=== PATIENT | female | born 1990 | race Caucasian/White ===

== ENCOUNTER 2018-12-03 21:20 | Emergency (ER) | payer OTHER ==
--- OUTSIDE RECORDS SUMMARY | 2018-12-03 21:23 | XMS REPORT ---
:1990 Author Organization eClinicalWorks Care Team Providers Name Role Phone Garland Herbert Provider Role Unavailable Allergies, Adverse Reactions, Alerts Substance Reaction Event Type N.K.D.A. Info Not Available Non Drug Allergy Problems Problem Type Condition Code Onset Dates Condition Status Assessment Pain, joint, shoulder, left M25.512 Active Assessment Strain of left shoulder, initial S46.912A Active encounter Assessment Cervical radiculopathy M54.12 Active Medications Medication Code System Code Instructions Start End Date Status Dosage Date [facility] [id number] 7.5 MG Orally Nov 13, Dec 13, Active 1 tablet Once a day 2018 [facility] [id number] 10 MG Orally Once Nov 13, Active 1 capsule a day 2018 Results No Known Results Summary Purpose eClinicalWorks Submission
[2018-12-03 22:54] LABS: Urine Blood NEGATIVE (NEG); Urine Glucose NEGATIVE (NEG); Urine Protein TRACE (NEG); Urine Specific Gravity 1.015 (1.005-1.030)
[2018-12-03] MEDS ORDERED: KETOROLAC 30 MG/ML INJ ONE (23:39)
[2018-12-03] MEDS ORDERED: NA CHLORIDE 0.9% 1,000 ML ONE (23:51)
--- NOTE | 2018-12-04 00:39 | ER ---
Nurse's Notes [facility] Name: Ana Dorsey Age: 28 yrs Sex: Female : 1990 Arrival Date: 12/03/2018 Time: 21:24 Bed 4 Private MD: Tres Hu B Diagnosis: Headache Presentation: 12/03 21:31 Presenting complaint: Patient states: "I started running a fever last night, this aj1 morning I went to the doctor he thinks I have the flu and he gave me Tamiflu and Zofran and Fiorcet and none of that is helping I'm having bad pain in my head and my stomach and a tight pain in my neck and shoulders and upper back and I just feel bad all over" Reports cough, and sinus congestion. Denies SOB. Transition of care: patient was not received from another setting of care. Onset of symptoms was December 03, 2018. Risk Assessment: Do you want to hurt yourself or someone else? Patient reports no desire to harm self or others. Initial Sepsis Screen: Does the patient meet any 2 criteria? HR > 90 bpm. No. Patient's initial sepsis screen is negative. Does the patient have a suspected source of infection? Yes: Productive cough/pneumonia. Care prior to arrival: None. 21:31 Method Of Arrival: Ambulatory aj1 21:31 Acuity: AISSATOU 4 aj1 Triage Assessment: 21:34 General: Appears in no apparent distress. uncomfortable, ill, Behavior is calm, aj1 cooperative, appropriate for age. Pain: Complains of pain in face, back, chest and abdomen Pain currently is 9 out of 10 on a pain scale. Neuro: Level of Consciousness is awake, alert, obeys commands. Cardiovascular: Patient's skin is warm and dry. Respiratory: Airway is patent Respiratory effort is even, unlabored, Respiratory pattern is regular, symmetrical. GI: Reports lower abdominal pain, nausea. 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 - Social history:: Smoking status: Patient/guardian denies using tobacco. - Ebola Screening: : Patient denies travel to an Ebola-affected area in the 21 days before illness onset. Screenin:20 Abuse screen: Denies threats or abuse. Denies injuries from another. Nutritional ak1 screening: No deficits noted. Tuberculosis screening: No symptoms or risk factors identified. Fall Risk None identified. Assessment: 22:19 Reassessment: Patient appears in no apparent distress at this time. No changes from ak1 previously documented assessment. Patient and/or family updated on plan of care and expected duration. Pain level reassessed. General: Appears in no apparent distress. Pain: Complains of pain in body aches. Neuro: No deficits noted. Cardiovascular: No deficits noted. Respiratory: No deficits noted. GI: Bowel sounds present X 4 quads. Abd is soft and non tender X 4 quads. : No signs and/or symptoms were reported regarding the genitourinary system. EENT: Reports nasal congestion nasal discharge. Derm: Reports fever started today. Musculoskeletal: No signs and/or symptoms reported regarding the musculoskeletal system. 23:32 Reassessment: Patient appears in no apparent distress at this time. No changes from ak1 previously documented assessment. Patient and/or family updated on plan of care and expected duration. Pain level reassessed. Patient is alert, oriented x 3, equal unlabored respirations, skin warm/dry/pink. 12/04 00:30 Reassessment: pt informed of discharge, pt and family at bedside asked for morphine for ak1 pain. ERP notified. ERP and Charge nurse sent to reassess. patient report given to Melissa for pt care. Vital Signs: 12/03 21:34 BP 126 / 86; Pulse 100; Resp 20; Temp 99.8; Pulse Ox 100% on R/A; Weight 106.59 kg (R); aj1 Height 5 ft. 8 in. (172.72 cm) (R); Pain 9/10; 22:44 BP 116 / 74; Pulse 96; Resp 18; Pulse Ox 99% on R/A; ak1 12/04 00:39 BP 98 / 61; Pulse 99; Resp 18; Pulse Ox 98% on R/A; ak1 01:54 BP 118 / 63; Pulse 94; Resp 17; Temp 99.6; Pulse Ox 98% on R/A; tl1 12/03 21:34 Body Mass Index 35.73 (106.59 kg, 172.72 cm) aj1 ED Course: 12/03 21:24 Patient arrived in ED. es 21:26 Tres Hu MD is Private Physician. es 21:33 Triage completed. aj1 21:34 Arm band placed on Patient placed in waiting room, Patient notified of wait time. aj1 22:15 Jie Dhillon, RN is Primary Nurse. ak1 22:20 Patient has correct armband on for positive identification. Bed in low position. Call ak1 light in reach. Side rails up X 1. Pulse ox on. NIBP on. 22:38 Delonte Redmond MD is Attending Physician. tw4 23:47 Inserted saline lock: 20 gauge in right antecubital area, using aseptic technique. ak1 12/04 00:38 Tres Hu MD is Referral Physician. tw4 00:39 No provider procedures requiring assistance completed. ak1 01:[address] via stretcher. kw1 01:18 CT completed. Patient tolerated procedure well. Patient moved back from CT. kw1 01:35 CT Head Brain wo Cont In Process Unspecified. EDMS 02:10 Tres Hu MD is Referral Physician. tw4 02:31 IV discontinued, intact, bleeding controlled, No redness/swelling at site. Pressure tl1 dressing applied. Administered Medications: 12/03 23:31 Drug: TORadol 60 mg Route: IM; Site: right gluteus; ak1 23:31 Follow up: Response: No adverse reaction ak1 23:46 Drug: NS 0.9% 1000 ml Route: IV; Rate: 1 bolus; Site: left antecubital; ak1 12/04 01:15 Follow up: IV Status: Completed infusion; IV Intake: 1000ml bb 00:34 Drug: traMADol 50 mg Route: PO; ak1 02:33 Follow up: Response: No adverse reaction; Marked relief of symptoms; Pain is decreased tl1 01:35 Drug: NS 0.9% 1000 ml Route: IV; Rate: 1 bolus; Site: left antecubital; tl1 02:32 Follow up: IV Status: Completed infusion tl1 01:35 Drug: morphine 4 mg Route: IVP; Infused Over: 2 mins; Site: left antecubital; tl1 02:32 Follow up: Response: No adverse reaction; Marked relief of symptoms; Pain is decreased tl1 01:36 Drug: Zofran 4 mg Route: IVP; Infused Over: 2 mins; Site: left antecubital; tl1 02:31 Follow up: Response: No adverse reaction; Marked relief of symptoms; Nausea is decreasedtl1 01:37 CANCELLED (Duplicate Order): NS 0.9% 1000 ml IV at 1 bolus Per protocol; 1000 mL bolus tl1 01:51 Drug: Tylenol 650 mg Route: PO; tl1 02:31 Follow up: Response: No adverse reaction; Marked relief of symptoms; Temperature is tl1 decreased Intake: 01:15 IV: 1000ml; Total: 1000ml. bb Outcome: 00:38 Discharge ordered by . tw4 02:30 AMA AMA form signed tl1 02:30 Condition: good 02:30 Instructed on medication usage. 02:34 Patient left the ED. tl1 Signatures: Dispatcher [employer] Ijeoma Sanders RN RN Apoorva Valverde Brenda, RN RN Melissa Colby RN RN tl1 Jie Dhillon RN RN ak1 Alley Price kw1 Delonte Redmond MD MD tw4
--- NOTE | 2018-12-04 00:39 | EDPHYS ---
Physician Documentation [facility] Name: Ana Dorsey Age: 28 yrs Sex: Female : 1990 Arrival Date: 12/03/2018 Time: 21:24 Bed 4 Private MD: Tres Hu B ED Physician Delonte Redmond HPI: 12/03 23:55 This 28 yrs old Female presents to ER via Ambulatory with complaints of tw4 Fever, Abdominal Pain, Headache. 23:55 The patient reports fever, not measured (subjective). Onset: The symptoms/episode tw4 began/occurred yesterday. Modifying factors: Recent medications: Other fioricet. Associated signs and symptoms: Pertinent positives: cough, headache. Severity of symptoms: At their worst the symptoms were moderate in the emergency department the symptoms are unchanged. The patient has been recently seen by a physician: the patient's primary care provider. 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 - Social history:: Smoking status: Patient/guardian denies using tobacco. - Ebola Screening: : Patient denies travel to an Ebola-affected area in the 21 days before illness onset. ROS: 23:55 Neuro: Positive for headache, Negative for altered mental status, dizziness, gait tw4 disturbance, seizure activity, speech changes, syncope, near syncope, tingling, tinnitus, tremor, visual changes. 23:55 Eyes: Negative for injury, pain, redness, and discharge, ENT: Negative for injury, tw4 pain, and discharge, Cardiovascular: Negative for chest pain, palpitations, and edema, Respiratory: Negative for shortness of breath, cough, wheezing, and pleuritic chest pain, Abdomen/GI: Negative for abdominal pain, nausea, vomiting, diarrhea, and constipation, MS/Extremity: Negative for injury and deformity, Skin: Negative for injury, rash, and discoloration. 23:55 Constitutional: Positive for fever, malaise. Exam: 23:55 Constitutional: This is a well developed, well nourished patient who is awake, alert, tw4 and in no acute distress. Head/Face: Normocephalic, atraumatic. Chest/axilla: Normal chest wall appearance and motion. Nontender with no deformity. No lesions are appreciated. Cardiovascular: Regular rate and rhythm with a normal S1 and S2. No gallops, murmurs, or rubs. Normal PMI, no JVD. No pulse deficits. Respiratory: Lungs have equal breath sounds bilaterally, clear to auscultation and percussion. No rales, rhonchi or wheezes noted. No increased work of breathing, no retractions or nasal flaring. Abdomen/GI: Soft, non-tender, with normal bowel sounds. No distension or tympany. No guarding or rebound. No evidence of tenderness throughout. Back: No spinal tenderness. No costovertebral tenderness. Full range of motion. Skin: Warm, dry with normal turgor. Normal color with no rashes, no lesions, and no evidence of cellulitis. MS/ Extremity: Pulses equal, no cyanosis. Neurovascular intact. Full, normal range of motion. Neuro: Awake and alert, GCS 15, oriented to person, place, time, and situation. Cranial nerves II-XII grossly intact. Motor strength 5/5 in all extremities. Sensory grossly intact. Cerebellar exam normal. Normal gait. Vital Signs: 21:34 BP 126 / 86; Pulse 100; Resp 20; Temp 99.8; Pulse Ox 100% on R/A; Weight 106.59 kg (R); aj1 Height 5 ft. 8 in. (172.72 cm) (R); Pain 9/10; 22:44 BP 116 / 74; Pulse 96; Resp 18; Pulse Ox 99% on R/A; ak1 12/04 00:39 BP 98 / 61; Pulse 99; Resp 18; Pulse Ox 98% on R/A; ak1 01:54 BP 118 / 63; Pulse 94; Resp 17; Temp 99.6; Pulse Ox 98% on R/A; tl1 12/03 21:34 Body Mass Index 35.73 (106.59 kg, 172.72 cm) aj MDM: 12/03 22:38 Patient medically screened. tw4 12/04 06:55 Differential diagnosis: viral Infection, bacterial infection, URI. Data reviewed: vital tw4 signs, nurses notes. Data interpreted: Pulse oximetry: Interpretation: normal. Counseling: I had a detailed discussion with the patient and/or guardian regarding: lab results, radiology results. Medication response: morphine relieved the patient's pain. Symptoms have resolved, Toradol did not change the patient's pain. Special discussion: I discussed with the patient/guardian in detail that at this point there is no indication for admission to the hospital. It is understood, however, that if the symptoms persist or worsen the patient needs to return immediately for re-evaluation. ED course: Pt states her pain did not improve at Toradol or Tramadol. Instructed pt that there was a possibility of viral meningitis since pt tested positive for the flu. P agreed and signed consent. After patient received morphine for her headache pt refused LP. AMA form signed pt understands risks of refusing. Told to return if symptoms worsen. 12/03 22:29 Order name: Influenza Screen (A EDMS 12/03 22:33 Order name: Urine Dipstick--Ancillary (enter results) ag4 12/03 22:33 Order name: Urine --Ancillary (enter results) ag4 12/04 00:56 Order name: CBC with Diff tw4 12/04 00:56 Order name: CMP tw4 12/04 00:55 Order name: CT Head Brain wo Cont tw4 12/04 00:56 Order name: PT-INR tw4 12/04 02:06 Order name: CBC Smear Scan EDMS Administered Medications: 12/03 23:31 Drug: TORadol 60 mg Route: IM; Site: right gluteus; ak1 23:31 Follow up: Response: No adverse reaction ak1 23:46 Drug: NS 0.9% 1000 ml Route: IV; Rate: 1 bolus; Site: left antecubital; ak1 12/04 01:15 Follow up: IV Status: Completed infusion; IV Intake: 1000ml bb 00:34 Drug: traMADol 50 mg Route: PO; ak1 02:33 Follow up: Response: No adverse reaction; Marked relief of symptoms; Pain is decreased tl1 01:35 Drug: NS 0.9% 1000 ml Route: IV; Rate: 1 bolus; Site: left antecubital; tl1 02:32 Follow up: IV Status: Completed infusion tl1 01:35 Drug: morphine 4 mg Route: IVP; Infused Over: 2 mins; Site: left antecubital; tl1 02:32 Follow up: Response: No adverse reaction; Marked relief of symptoms; Pain is decreased tl1 01:36 Drug: Zofran 4 mg Route: IVP; Infused Over: 2 mins; Site: left antecubital; tl1 02:31 Follow up: Response: No adverse reaction; Marked relief of symptoms; Nausea is decreasedtl1 01:37 CANCELLED (Duplicate Order): NS 0.9% 1000 ml IV at 1 bolus Per protocol; 1000 mL bolus tl1 01:51 Drug: Tylenol 650 mg Route: PO; tl1 02:31 Follow up: Response: No adverse reaction; Marked relief of symptoms; Temperature is tl1 decreased Disposition: 12/04/18 02:11 Patient has left against medical advice. Impression: Headache. - Patients states they are going to Home. - Condition is Stable. Follow up: Tres Hu MD; When: Upon discharge from the Emergency Department; Reason: If symptoms return, Recheck today's complaints, Continuance of care. - Problem is new. - Symptoms are unchanged. Signatures: Dispatcher [employer] EDMS Ijeoma Ford RN RN aj1 Melissa Cano RN RN tl1 Jie Dhillon RN RN ak1 Delonte Redmond MD MD tw4 Shirley Esparza RN bb Corrections: (The following items were deleted from the chart) 12/03 23:59 23:55 Constitutional: Negative for fever, chills, and weight loss, Eyes: Negative for tw4 injury, pain, redness, and discharge, Cardiovascular: Negative for chest pain, palpitations, and edema, Respiratory: Negative for shortness of breath, cough, wheezing, and pleuritic chest pain, Abdomen/GI: Negative for abdominal pain, nausea, vomiting, diarrhea, and constipation, Back: Negative for injury and pain, MS/Extremity: Negative for injury and deformity, Skin: Negative for injury, rash, and discoloration, tw4 12/04 01:37 00:55 NS 0.9% 1000 ml IV at 1 bolus Per protocol; 1000 mL bolus ordered. tw4 tl1 01:53 00:38 12/04/2018 00:38 Discharged to Home. Impression: Influenza due to other tl1 identified influenza virus. Condition is Stable. Forms are Work release form, Medication Reconciliation Form, Thank You Letter, Antibiotic Education, Prescription Opioid Use. Follow up: Tres Hu; When: Upon discharge from the Emergency Department; Reason: If symptoms return, Recheck today's complaints, Continuance of care. Problem is new. Symptoms have improved. tw4 02:33 00:55 LP Setup ordered. tw4 tl1 02:33 00:55 LP Consents ordered. tw4 tl1 02:34 02:11 12/04/2018 02:11 Patients has left against medical advice. Impression: Headache. tl1 Patient states they are going to Home. Condition is Stable. Prescriptions for Ibuprofen 800 mg Oral Tablet - take 1 tablet by ORAL route every 8 hours As needed take with food; 30 tablet, Tramadol 50 mg Oral Tablet - take 1 tablet by ORAL route every 8 hours as needed; 12 tabletFollow up: Ters Hu; When: Upon discharge from the Emergency Department; Reason: If symptoms return, Recheck today's complaints, Continuance of care. Problem is new. Symptoms are unchanged. tw4
[2018-12-04] MEDS ORDERED: TRAMADOL HCL 50 MG TAB ONE (00:40)
[2018-12-04] MEDS ORDERED: NA CHLORIDE 0.9% 1,000 ML ONE (01:40)
[2018-12-04] MEDS ORDERED: ONDANSETRON 4 MG/2 ML VIAL ONE (01:40)
[2018-12-04] MEDS ORDERED: MORPHINE 4 MG/ML SYR ONE (01:40)
[2018-12-04 01:43] LABS: Absolute Lymphocytes (CBC) 0.6 K/uL (0.7-4.9); Absolute Monocytes 0.3 K/uL (0.1-1.3); Absolute Neutrophil 6.5 K/uL (1.8-8.0); Basophils % 0.3 % (0-1.3); Eosinophils % 0.1 % (0-4.4); Hematocrit 37.7 % (36.0-45.0); Lymphocytes % 7.5 % (15.3-44.8); MPV 8.3 fL (7.6-11.3); Monocytes % 4.7 % (3.3-12.3); Protime INR 1.12; RBC Red Blood Cell Count 4.28 M/uL (3.86-4.86)
[2018-12-04] MEDS ORDERED: ACETAMINOPHEN 325 MG TABLET ONE (01:58)
[2018-12-04 01:59] LABS: Albumin 3.8 g/dL (3.4-5.0); Bilirubin Total 0.3 mg/dL (0.2-1.0); Potassium 3.6 mmol/L (3.5-5.1); Protein, Total 6.8 g/dL (6.4-8.2)
[2018-12-04 02:05] LABS: Blood Morphology Comment NOT SEEN (NOT SEEN); Platelet Estimate ADEQ; Urine White Blood Cell Casts OK
[2018-12-04] MEDS ORDERED: LIDOCAINE 1% MPF 5 ML VIAL ONE (02:10)
[2018-12-04 04:37] VITALS: O2SAT 98
[2018-12-04 04:38] VITALS: BP 118/63; TEMP 99.6
--- NOTE | 2018-12-04 18:52 | RAD REPORT ---
EXAM DESCRIPTION: CT - Head Brain Wo Cont - 12/04/2018 2:42 am CLINICAL HISTORY: The patient is 28 years old and is Female; HEADACHE COMPARISON: No relevant prior studies available. TECHNIQUE: Axial computed tomography images of the head/brain and cervical spine without intravenous contrast. Sagittal and coronal reformatted images were created and reviewed. This CT exam was perfor med using one or more of the following dose reduction techniques: Automated exposure control, adjustm ent of the mA and/or kV according to patient size, and/or use of iterative reconstruction technique. FINDINGS: Brain: Unremarkable. The corona-white matter differentiation is preserved. No hemorrhage. No significant white matter disease. No edema. No extra-axial fluid collections. Ventricles: Unremarkable. No ventriculomegaly. Bones/joints: No acute fracture. Soft tissues: Unremarkable. Sinuses: Unremarkable as visualized. No acute sinusitis. Mastoid air cells: Unremarkable as visualized. No mastoid effusion. IMPRESSION: No acute intracranial findings. 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 The interpreting radiologist is f ully responsible for the content of the report.
== END 2018-12-04 02:34 | disposition left against medical advice (07) ==
LOC: ER 21:20
DX: R51 Headache (principal); R05 Cough
CPT/HCPCS: 36415; 70450; 80053; 81003; 81025; 85025; 85610; 87804; 96361; 96372; 96374; 96375; 99284; J2405; J7030

== ENCOUNTER 2019-07-16 14:03 | Emergency (ER) | payer OTHER ==
[2019-07-16] MEDS ORDERED: METOCLOPRAMIDE 10 MG/2mL INJ ONE (14:33)
[2019-07-16] MEDS ORDERED: dexAMETHasone 10 MG/ML VIAL ONE (14:33)
[2019-07-16] MEDS ORDERED: MEPERIDINE HCL 25 MG/0.5 ML ONE (14:33)
[2019-07-16] MEDS ORDERED: NA CHLORIDE 0.9% 1,000 ML ONE (14:34)
--- NOTE | 2019-07-16 14:44 | RAD REPORT ---
EXAM DESCRIPTION: CT - Head Brain Wo Cont - 07/16/2019 2:32 pm CLINICAL HISTORY: Headache COMPARISON: November 2018 TECHNIQUE: Computed axial tomography of the head was obtained. IV contrast was not requested. All CT scans are performed using dose optimization technique as appropriate and may include automated exposure control or mA/KV adjustment according to patient size. FINDINGS: An intracranial bleed is not seen . The ventricles are normal in caliber. No extra-axial fluid collection is noted. Fluid within the sinuses/ mastoids is not seen. IMPRESSION: No acute intracranial abnormality is seen. If patient's symptoms persist MRI of the bra in would be recommended.
[2019-07-16 15:09] LABS: Potassium 3.8 mmol/L (3.5-5.1)
[2019-07-16 16:08] LABS: Urine Blood NEGATIVE (NEG); Urine Glucose NEGATIVE (NEG); Urine Protein NEGATIVE (NEG); Urine Specific Gravity 1.015 (1.005-1.030); Urine pH 8.5 (5.0-7.0)
[2019-07-16 16:16] LABS: Urine Bacteria <20 /HPF (<20); Urine RBC NONE SEEN /HPF (NONE SEEN)
[2019-07-16 16:17] LABS: Urine Culture Reflex Order NOT NEEDED
--- NOTE | 2019-07-16 16:21 | ER ---
Nurse's Notes [facility] Name: Ana Dorsey Age: 28 yrs Sex: Female : 1990 Arrival Date: 07/16/2019 Time: 14:06 Bed 17 Private MD: Tres Hu B Diagnosis: Migraine Presentation: 07/16 14:08 Presenting complaint: Patient states: Headache that started at 0930 this morning. aj1 Reports history of migraines but this is worse than her previous headaches. She takes Fiorcet for headaches, which usually works but today she isn't getting any relief. Reports nausea. Denies head injury. Denies fever. Transition of care: patient was not received from another setting of care. Onset of symptoms was July 16, 2019 at 09:30. Risk Assessment: Do you want to hurt yourself or someone else? Patient reports no desire to harm self or others. Initial Sepsis Screen: Does the patient meet any 2 criteria? No. Patient's initial sepsis screen is negative. Does the patient have a suspected source of infection? No. Patient's initial sepsis screen is negative. Care prior to arrival: None. 14:08 Method Of Arrival: Ambulatory aj1 14:08 Acuity: AISSATOU 3 aj1 Triage Assessment: 14:09 Headache History: The patient has had previous headaches and this one is more severe aj1 than previous episodes. General: Appears uncomfortable, Behavior is cooperative, anxious. Pain: Complains of pain in forehead and right eye Pain radiates to right jaw and neck Pain currently is 10 out of 10 on a pain scale. Pain began 5 hours ago Also complains of nausea. Neuro: Level of Consciousness is awake, alert, obeys commands. Cardiovascular: Patient's skin is warm and dry. Respiratory: Airway is patent Respiratory effort is even, unlabored, Respiratory pattern is regular, symmetrical. NURSE OB: 14:09 LMP N/A - control method aj1 Historical: - Allergies: 14:09 No Known Allergies; aj1 - Home Meds: 14:09 Fioricet Oral [Active]; aj1 - PMHx: 14:09 Migraines; aj1 - PSHx: 14:09 ; aj1 - Immunization history:: Flu vaccine is not up to date. - Social history:: Smoking status: Patient/guardian denies using tobacco. - Ebola Screening: : Patient denies travel to an Ebola-affected area in the 21 days before illness onset. - Family history:: not pertinent. - Hospitalizations: : No recent hospitalization is reported. Screenin:20 Abuse screen: Denies threats or abuse. Denies injuries from another. Nutritional hb screening: No deficits noted. Tuberculosis screening: No symptoms or risk factors identified. Fall Risk None identified. Assessment: 14:20 General: Appears in no apparent distress. Behavior is calm, cooperative. Pain: Pain hb currently is 10 out of 10 on a pain scale. Neuro: Level of Consciousness is awake, alert, obeys commands, Oriented to person, place, time, situation. Cardiovascular: Capillary refill < 3 seconds Patient's skin is warm and dry. Respiratory: Airway is patent Respiratory effort is even, unlabored, Respiratory pattern is regular, symmetrical. GI: Reports nausea. : No signs and/or symptoms were reported regarding the genitourinary system. EENT: No signs and/or symptoms were reported regarding the EENT system. Derm: Skin is intact, is healthy with good turgor, Skin is pink, warm \T\ dry. Musculoskeletal: No signs and/or symptoms reported regarding the musculoskeletal system. 15:30 Reassessment: Patient appears in no apparent distress at this time. Patient and/or hb family updated on plan of care and expected duration. Pain level reassessed. Patient is alert, oriented x 3, equal unlabored respirations, skin warm/dry/pink. 16:20 Reassessment: Patient appears in no apparent distress at this time. Patient and/or hb family updated on plan of care and expected duration. Pain level reassessed. Patient is alert, oriented x 3, equal unlabored respirations, skin warm/dry/pink. Vital Signs: 14:09 BP 106 / 70; Pulse 74; Resp 16; Temp 97.4; Pulse Ox 100% on R/A; Weight 106.59 kg (R); aj1 Height 5 ft. 8 in. (172.72 cm) (R); Pain 10/10; 16:00 BP 118 / 72; Pulse 77; Resp 15; Pulse Ox 100% on R/A; Pain 0/10; hb 14:09 Body Mass Index 35.73 (106.59 kg, 172.72 cm) aj1 [place] Coma Score: 16:14 Eye Response: spontaneous(4). Verbal Response: oriented(5). Motor Response: obeys rn commands(6). Total: 15. ED Course: 14:06 Patient arrived in ED. mr 14:06 Tres Hu MD is Private Physician. mr 14:09 Triage completed. aj1 14:09 Arm band placed on Patient placed in an exam room. aj1 14:12 Blaine Roman MD is Attending Physician. rn 14:24 Little Juárez RN is Primary Nurse. hb 14:34 CT Head Brain wo Cont In Process Unspecified. EDMS 14:57 Patient has correct armband on for positive identification. Bed in low position. Call hb light in reach. Side rails up X 1. 14:57 Inserted saline lock: 20 gauge in right antecubital area, using aseptic technique. hb Blood collected. 16:28 No provider procedures requiring assistance completed. IV discontinued, intact, hb bleeding controlled, No redness/swelling at site. Pressure dressing applied. Administered Medications: 14:56 Drug: NS 0.9% 1000 ml Route: IV; Rate: 1000 ml; Site: right antecubital; hb 16:01 Follow up: Response: No adverse reaction; IV Status: Completed infusion; IV Intake: hb 1000ml 14:56 Drug: Reglan 10 mg Route: IVP; Site: right antecubital; hb 15:40 Follow up: Response: No adverse reaction hb 14:56 Drug: Demerol 25 mg Route: IVP; Site: right antecubital; hb 15:44 Follow up: Response: No adverse reaction; Pain is decreased hb 14:56 Drug: Decadron - Dexamethasone 10 mg Route: IVP; Site: right antecubital; hb 15:30 Follow up: Response: No adverse reaction hb Intake: 16:01 IV: 1000ml; Total: 1000ml. hb Outcome: 16:19 Discharge ordered by . rn 16:28 Discharged to home ambulatory, with family. hb 16:28 Condition: stable 16:28 Discharge instructions given to patient, Instructed on discharge instructions, follow up and referral plans. medication usage, Demonstrated understanding of instructions, follow-up care, medications. 16:29 Patient left the ED. hb Signatures: Dispatcher [employer] EDWY Ijeoma Ford RN RN aj1 Ethel Boyer Blaine Canchola MD MD rn Baxter, Heather, RONAN RN hb
--- NOTE | 2019-07-16 16:21 | EDPHYS ---
Physician Documentation [facility] Name: Ana Dorsey Age: 28 yrs Sex: Female : 1990 Arrival Date: 07/16/2019 Time: 14:06 Bed 17 Private MD: Tres Hu B ED Physician Blaine Roman HPI: 07/16 16:14 This 28 yrs old Female presents to ER via Ambulatory with complaints of rn Headache, Nausea. 16:14 The patient complains of pain to the forehead. The patient describes the headache as rn aching. Onset: The symptoms/episode began/occurred today. Severity of symptoms: At its worst the pain was moderate, in the emergency department the pain is unchanged. The symptoms are alleviated by nothing. the symptoms are aggravated by lights, noise, stress. The patient has not experienced similar symptoms in the past. The patient has not recently seen a physician. Pt reports at school today, began with headache, similar but worse than previous migraines, no trauma, no fever, no neck stiffness, + nausea. No focal neurological problems. Sees Dr. Gonzalez for migraines, took fiorcet without relief.. FROG SHAKER: 14:09 LMP N/A - control method aj1 Historical: - Allergies: 14:09 No Known Allergies; aj1 - Home Meds: 14:09 Fioricet Oral [Active]; aj1 - PMHx: 14:09 Migraines; aj1 - PSHx: 14:09 ; aj1 - Immunization history:: Flu vaccine is not up to date. - Social history:: Smoking status: Patient/guardian denies using tobacco. - Ebola Screening: : Patient denies travel to an Ebola-affected area in the 21 days before illness onset. - Family history:: not pertinent. - Hospitalizations: : No recent hospitalization is reported. ROS: 16:14 Constitutional: Negative for fever, chills, and weight loss, Eyes: Negative for injury, rn pain, redness, and discharge, Neck: Negative for injury, pain, and swelling, Cardiovascular: Negative for chest pain, palpitations, and edema, Respiratory: Negative for shortness of breath, cough, wheezing, and pleuritic chest pain, Abdomen/GI: Negative for abdominal pain, diarrhea, and constipation, MS/Extremity: Negative for injury and deformity, Skin: Negative for injury, rash, and discoloration, Neuro: Negative for weakness, numbness, tingling, and seizure. Exam: 16:14 Constitutional: This is a well developed, well nourished patient who is awake, alert, rn appears uncomfortable Head/Face: Normocephalic, atraumatic. Eyes: Pupils equal round and reactive to light, extra-ocular motions intact. Lids and lashes normal. Conjunctiva and sclera are non-icteric and not injected. Cornea within normal limits. Periorbital areas with no swelling, redness, or edema. ENT: MMM Cardiovascular: Regular rate and rhythm. No pulse deficits. Respiratory: Lungs have equal breath sounds bilaterally, clear to auscultation. No increased work of breathing, no retractions or nasal flaring. Abdomen/GI: soft, non-tender Skin: Warm, dry with normal turgor. Normal color with no rashes, no lesions, and no evidence of cellulitis. MS/ Extremity: Pulses equal, no cyanosis. Neurovascular intact. Full, normal range of motion. Equal circumference. Neuro: Awake and alert, GCS 15, oriented to person, place, time, and situation. Cranial nerves II-XII grossly intact. Motor strength 5/5 in all extremities. Sensory grossly intact. Cerebellar exam normal. Normal gait. Vital Signs: 14:09 BP 106 / 70; Pulse 74; Resp 16; Temp 97.4; Pulse Ox 100% on R/A; Weight 106.59 kg (R); aj1 Height 5 ft. 8 in. (172.72 cm) (R); Pain 10/10; 16:00 BP 118 / 72; Pulse 77; Resp 15; Pulse Ox 100% on R/A; Pain 0/10; hb 14:09 Body Mass Index 35.73 (106.59 kg, 172.72 cm) aj1 [place] Coma Score: 16:14 Eye Response: spontaneous(4). Verbal Response: oriented(5). Motor Response: obeys rn commands(6). Total: 15. MDM: 14:12 Patient medically screened. rn 16:14 Differential diagnosis: hypertensive headache, migraine, tension headache, vasomotor rn headache. Data reviewed: vital signs, nurses notes, lab test result(s), radiologic studies, CT scan, and as a result, I will discharge patient. Counseling: I had a detailed discussion with the patient and/or guardian regarding: the historical points, exam findings, and any diagnostic results supporting the discharge/admit diagnosis, lab results, radiology results, the need for outpatient follow up, to return to the emergency department if symptoms worsen or persist or if there are any questions or concerns that arise at home. Response to treatment: the patient's symptoms have resolved after treatment, the patient's condition has returned to base line, the patient is now symptom free, and as a result, I will discharge patient. Special discussion: I discussed with the patient/guardian in detail that at this point there is no indication for admission to the hospital. It is understood, however, that if the symptoms persist or worsen the patient needs to return immediately for re-evaluation. Based on the history and exam findings, there is no indication for further emergent testing or inpatient evaluation. I discussed with the patient/guardian the need to see the neurologist for further evaluation of the symptoms. 16:14 ED course: Feels much better, pain resolved, ambulatory to bathroom and thankful. Will rn f/u with Dr. Gonzalez.. 07/16 14:22 Order name: BMP; Complete Time: 15:55 07/16 14:22 Order name: [place] Screen Profile; Complete Time: 15:55 07/16 14:22 Order name: Strep; Complete Time: 15:55 07/16 14:22 Order name: Flu; Complete Time: 15:55 07/16 14:22 Order name: Urine Microscopic Only 07/16 15:15 Order name: Throat Culture [facility] 07/16 14:22 Order name: CT Head Brain wo Cont; Complete Time: 14:59 07/16 14:22 Order name: IV Start; Complete Time: 14:56 07/16 16:03 Order name: Urine Dipstick--Ancillary (enter results) ri 07/16 16:03 Order name: Urine --Ancillary (enter results) ri 07/16 14:22 Order name: Urine Test (obtain specimen); Complete Time: 16:00 07/16 14:22 Order name: Urine Dipstick-Ancillary (obtain specimen); Complete Time: 16:00 rn Administered Medications: 14:56 Drug: NS 0.9% 1000 ml Route: IV; Rate: 1000 ml; Site: right antecubital; hb 16:01 Follow up: Response: No adverse reaction; IV Status: Completed infusion; IV Intake: hb 1000ml 14:56 Drug: Reglan 10 mg Route: IVP; Site: right antecubital; hb 15:40 Follow up: Response: No adverse reaction hb 14:56 Drug: Demerol 25 mg Route: IVP; Site: right antecubital; hb 15:44 Follow up: Response: No adverse reaction; Pain is decreased hb 14:56 Drug: Decadron - Dexamethasone 10 mg Route: IVP; Site: right antecubital; hb 15:30 Follow up: Response: No adverse reaction hb Disposition: 07/16/19 16:19 Discharged to Home. Impression: Migraine. - Condition is Stable. - Discharge Instructions: Migraine Headache. - Medication Reconciliation Form, Thank You Letter, Antibiotic Education, Prescription Opioid Use form. - Follow up: Private Physician; When: As needed; Reason: Recheck today's complaints, Re-evaluation by your physician. - Problem is new. - Symptoms have improved. Signatures: Dispatcher [employer] EDIjeoma Franco RN RN aj1 Blaine Roman MD MD rn Baxter, Heather, RN RN hb Corrections: (The following items were deleted from the chart) 16:29 16:19 07/16/2019 16:19 Discharged to Home. Impression: Migraine. Condition is Stable. hb Forms are Medication Reconciliation Form, Thank You Letter, Antibiotic Education, Prescription Opioid Use. Follow up: Private Physician; When: As needed; Reason: Recheck today's complaints, Re-evaluation by your physician. Problem is new. Symptoms have improved. rn
[2019-07-16] MEDS ORDERED: PROMETHAZINE 25 MG/ML VIAL ONE (16:24)
[2019-07-16 16:51] VITALS: TEMP 97.4; O2SAT 100
[2019-07-16 16:54] VITALS: BP 118/72
== END 2019-07-16 16:29 | disposition home or self-care (01) ==
LOC: ER 14:03
DX: G43.909 Migraine, unspecified, not intractable, without status migrainosus (principal)
CPT/HCPCS: 96361; 87070; 80048; 36415; 86308; 81025; 87081; 87804 ×2; 70450; 96375; 96374; 99284; J2765; J2550; J1100; J2175; J7030; 81003; 81015